=== PATIENT | female | born 1960 | race Caucasian/White ===

== ENCOUNTER 2018-01-07 21:10 | Emergency (ER) | payer OTHER ==
[~2018-01-07] VITALS: Ht 154.9 cm; Wt 104.8 kg
[~2018-01-07 21:10] MED LIST: COLACE100 MG PO; MEDROLDOSEPACK PO; NAPROSYN500 MG PO; PERCOCET PO; PROAIR HFA8.5 GM INH; PROMETHAZINE D480 ML PO; ZPAK PO
[2018-01-07] MEDS ORDERED: NOHOMEMEDICATIONS (21:24)
[2018-01-07] MEDS ORDERED: PREDNISONE50 MG PO (22:01)
[2018-01-07] MEDS ORDERED: ROBITUSSIN100 MG/53 PO (22:01)
[2018-01-07] MEDS ORDERED: VENTOLIN HFA 1818 GM INH (22:01)
[2018-01-07] MEDS ORDERED: AMOXICILLIN 50500 M1 PO (22:01)
[2018-01-07 22:40] VITALS: BP 164/83
--- NOTE | 2018-01-08 13:59 | EKG ---
[place] [address] ELECTROCARDIOGRAM REPORT Name: KULWINDER MICHAEL Room: [facility]#: [id number] Admission: 01/07/18 Attend Phys: Discharge: 01/07/18 Date of : 62 Report #: [id number] THIS REPORT FOR: //name// [facility] [place] ED Test Date: 2018-01-07 Test Time: 21:51:46 Pat Name: KULWINDER MICHAEL Department: Room: Gender: F Senior Statistician: YANETH : 1960 Requested By: Mark Peacock Order Number: [id number] MD: Juan Matthews Measurements Intervals [place] Rate: 91 P: 32 MA: 123 QRS: 46 QRSD: 80 T: 24 QT: 363 QTc: 447 Interpretive Statements Sinus rhythm Baseline wander in lead(s) I,III,aVL,aVF,V3 No previous ECG available for comparison Electronically Signed On 01-08-2018 13:59:11 CDT by Juan Matthews [email or web address] <ELECTRONICALLY SIGNED> By: Juan Matthews MD, [facility] 01/08/18 [id number] Juan Matthews MD, [facility] /EPI
== END 2018-01-07 22:42 | disposition home or self-care (01) ==
LOC: M.ERS 21:10
DX: J18.9 Pneumonia, unspecified organism (principal); J34.89 Other specified disorders of nose and nasal sinuses; E11.9 Type 2 diabetes mellitus without complications

== ENCOUNTER 2018-12-19 02:06 | Emergency (ER) | payer OTHER ==
[~2018-12-19] VITALS: Ht 154.9 cm; Wt 103.5 kg
[~2018-12-19 02:06] MED LIST changes: +AMOXICILLIN 50500 M1 PO; +NOHOMEMEDICATIONS; +PREDNISONE50 MG PO; +ROBITUSSIN100 MG/53 PO; +VENTOLIN HFA 1818 GM INH
[2018-12-19 02:35] LABS: ABSOLUTE BASOPHILS 0.1 thou/uL (0.0-0.2); ABSOLUTE EOSINOPHILS 0.2 thou/uL (0.0-0.7); ABSOLUTE LYMPHOCYTES 2.4 thou/uL (0.8-5.3); ABSOLUTE MONOCYTES 0.9 thou/uL (0.0-1.2); ABSOLUTE NEUTROPHILS 3.7 thou/uL (1.6-8.1); BASOPHILS 0.7 %; EOSINOPHILS 2.2 %; HEMATOCRIT 42.5 % (37.0-47.0); HEMOGLOBIN 14.3 gm/dL (12.0-15.0); LYMPHOCYTES 33.3 %; MCH 29.6 pg (26.0-34.0); MCHC 33.7 g/dL (28.0-37.0); MCV 87.8 fL (80.0-100.0); MONOCYTES 12.2 %; MPV 8.5 fl. (7.2-11.1); NUCLEATED RBCS 0 /100WBC; PLATELET COUNT* 217 thou/uL (150-400); POLYS 51.6 %; RBC 4.84 mil/uL (4.20-5.00); RDW-CV 13.4 % (10.5-14.5); WBC 7.2 thou/uL (4.0-11.0)
[2018-12-19 02:36] LABS: URINE BILIRUBIN NEGATIVE (Negative); URINE BLOOD NEGATIVE (Negative); URINE CLARITY CLEAR; URINE COLOR YELLOW; URINE GLUCOSE-RANDOM 3+ (Negative); URINE KETONES NEGATIVE (Negative); URINE LEUKOCYTES-REFLEX NEGATIVE (Negative); URINE NITRITE-REFLEX NEGATIVE (Negative); URINE PROTEIN NEGATIVE (Negative)
[2018-12-19 02:44] LABS: POTASSIUM 3.8 mmol/L (3.5-5.1)
[2018-12-19 02:48] LABS: ALBUMIN 3.1 g/dL (3.4-5.0); TOTAL BILIRUBIN 0.4 mg/dL (<0.1-1.0); TOTAL PROTEIN 7.5 g/dL (6.4-8.2)
[2018-12-19] MEDS ORDERED: ZOFRAN ODT4 MG PO (04:14)
[2018-12-19] MEDS ORDERED: PRILOSEC 20 MG20 MG PO (04:14)
[2018-12-19] MEDS ORDERED: CARAFATE 1 GM TA1 GM PO (04:14)
[2018-12-19] MEDS ORDERED: HYDROCODON-ACE1 EAC8 PO (04:14)
[2018-12-19 04:24] VITALS: BP 143/87
== END 2018-12-19 04:24 | disposition home or self-care (01) ==
LOC: M.ERS 02:06
PROVIDERS: Emergency Medicine
DX: R10.11 Right upper quadrant pain (principal); R10.13 Epigastric pain; E11.9 Type 2 diabetes mellitus without complications; Z90.49 Acquired absence of other specified parts of digestive tract

== ENCOUNTER 2019-08-18 00:44 | Emergency (ER) | payer OTHER ==
[~2019-08-18] VITALS: Ht 154.9 cm; Wt 99.8 kg
[~2019-08-18 00:44] MED LIST changes: +CARAFATE 1 GM TA1 GM PO; +HYDROCODON-ACE1 EAC8 PO; +PRILOSEC 20 MG20 MG PO; +ZOFRAN ODT4 MG PO
[2019-08-18] MEDS ORDERED: KAPSPARGO SPRIN50 MG PO (01:03)
[2019-08-18] MEDS ORDERED: METFORMIN HCL500 M3 PO (01:03)
[2019-08-18 01:35] LABS: URINE BILIRUBIN NEGATIVE (Negative); URINE BLOOD NEGATIVE (Negative); URINE CLARITY CLEAR; URINE COLOR YELLOW; URINE GLUCOSE-RANDOM 1+ (Negative); URINE KETONES NEGATIVE (Negative); URINE LEUKOCYTES-REFLEX TRACE (Negative); URINE NITRITE-REFLEX NEGATIVE (Negative); URINE PROTEIN NEGATIVE (Negative); URINE SPECIFIC GRAVITY <= 1.005 (1.005-1.030); URINE UROBILINOGEN 0.2 E.U./dl (0.2-1.0)
[2019-08-18 01:40] LABS: ABSOLUTE EOSINOPHILS 0.2 thou/uL (0.0-0.7); ABSOLUTE LYMPHOCYTES 3.2 thou/uL (0.8-5.3); ABSOLUTE MONOCYTES 0.9 thou/uL (0.0-1.2); ABSOLUTE NEUTROPHILS 4.5 thou/uL (1.6-8.1); BASOPHILS 0.5 %; EOSINOPHILS 1.9 %; HEMOGLOBIN 14.4 gm/dL (12.0-15.0); LYMPHOCYTES 36.3 %; MCH 30.2 pg (26.0-34.0); MCHC 34.3 g/dL (28.0-37.0); MCV 87.9 fL (80.0-100.0); MONOCYTES 10.3 %; MPV 8.5 fl. (7.2-11.1); NUCLEATED RBCS 0 /100WBC; PLATELET COUNT* 225 thou/uL (150-400); RBC 4.77 mil/uL (4.20-5.00); RDW-CV 13.1 % (10.5-14.5); WBC 8.8 thou/uL (4.0-11.0)
[2019-08-18 01:43] LABS: POTASSIUM 3.8 mmol/L (3.5-5.1)
[2019-08-18 01:43] LABS: BACTERIA-REFLEX >30 Many /HPF (None Seen); CASTS None Seen /LPF (None Seen); CRYSTALS None Seen /LPF (None Seen); MUCUS 4-6 Moderate strn/LPF (None Seen); SQUAMOUS 4-10 Moderate /LPF (0-3); URINE RBC 3-10 Few /HPF (0-2); URINE WBC-REFLEX 6-15 Few /HPF (0-5)
[2019-08-18 01:47] LABS: ALBUMIN 3.3 g/dL (3.4-5.0); TOTAL BILIRUBIN 0.2 mg/dL (<0.1-1.0); TOTAL PROTEIN 7.6 g/dL (6.4-8.2)
[2019-08-18] MEDS ORDERED: HYDROCODON-ACE1 EAC8 PO (04:49)
[2019-08-18] MEDS ORDERED: ZOFRAN ODT4 MG PO (04:49)
[2019-08-18] MEDS ORDERED: BACTRIM DS TAB1 EACH PO (05:14)
[2019-08-18 05:25] VITALS: BP 1156/90
== END 2019-08-18 05:25 | disposition home or self-care (01) ==
LOC: M.ERS 00:44
PROVIDERS: Emergency Medicine
DX: R10.11 Right upper quadrant pain (principal); E11.9 Type 2 diabetes mellitus without complications; Z90.49 Acquired absence of other specified parts of digestive tract